=== PATIENT | female | born 1945 | race Caucasian/White ===

== ENCOUNTER 2017-01-19 11:51 | Emergency (ER) | payer OTHER ==
[~2017-01-19] VITALS: Ht 170.2 cm; Wt 83.0 kg
[~2017-01-19 11:51] MED LIST: ALEVE220 M2 PO; ANTIVERT12.5 MG PO; ASPIR 8181 M1 PO; ASPIRIN81 M1 PO; AZITHROMYCIN500 M1 PO; Bactrim,Septra DS 80 PO; DICLOFENAC SODI50 MG PO; LEVO-T88 MCG PO; LEVOTHYROXINE75 MCG PO; PREDNISONE10 MG PO; PRINZIDE 20-121 EACH PO; PROAIR HFA8.5 GM IH; PROVENTIL,2.5 MG/3 M IH; Proventil,Ventolin H IH; SPIRIVA RESPIMAT4 GM IH; TRICOR145 MG PO; VOLTAREN25 MG PO; ZESTORETIC,P1 TABLE1 PO
[2017-01-19 13:46] LABS: ADD MIUA? NO; BILIRUBIN NEGATIVE; BLOOD NEGATIVE; COLOR STRAW ((YELLOW)); GLUCOSE (STRIP) NEGATIVE; KETONES NEGATIVE; LEUKOCYTES NEGATIVE; NITRITE NEGATIVE; PROTEIN (STRIP) NEGATIVE; SPECIFIC GRAVITY 1.006 (1.000-1.030); UROBILINOGEN 0.2 MG/DL (0.2-1.0)
[2017-01-19] MEDS ORDERED: ATIVAN0.5 MG PO (13:59)
[2017-01-19 14:03] VITALS: BP 130/75
== END 2017-01-19 14:11 | disposition home or self-care (01) ==
LOC: EME 11:51
PROVIDERS: Nurse Practitioner Family
DX: F41.9 Anxiety disorder, unspecified (principal); I12.9 Hypertensive chronic kidney disease with stage 1 through stage 4 chronic kidney disease, or unspecified chronic kidney disease; N18.9 Chronic kidney disease, unspecified; I71.4 Abdominal aortic aneurysm, without rupture; R35.0 Frequency of micturition; E03.9 Hypothyroidism, unspecified; J44.9 Chronic obstructive pulmonary disease, unspecified; Z79.82 Long term (current) use of aspirin; Z87.891 Personal history of nicotine dependence
CPT/HCPCS: 81003; 99281; 99283